=== PATIENT | female | born 1940 | race Caucasian/White ===

== ENCOUNTER → 2016-11-19 | Outpatient (CLI) | payer OTHER | LOC: BHLMT 13:15 | PROVIDERS: ATTEND Internal Medicine Cardiovascular Disease | DX: I20.1 Angina pectoris with documented spasm (principal); I10 Essential (primary) hypertension; E78.5 Hyperlipidemia, unspecified; R07.9 Chest pain, unspecified; Z78.9 Other specified health status | CPT/HCPCS: 93005-PO ==

== ENCOUNTER → 2016-12-04 | Outpatient (CLI) | payer OTHER | LOC: BHLMT 08:30 | PROVIDERS: ATTEND Internal Medicine Interventional Cardiology | DX: R07.9 Chest pain, unspecified (principal) | CPT/HCPCS: 78452; 93017; A9500; J2785 ==

== ENCOUNTER → 2018-04-21 | Outpatient (CLI) | payer OTHER | LOC: BHLMT 13:15 | PROVIDERS: ATTEND Internal Medicine Cardiovascular Disease | DX: I20.1 Angina pectoris with documented spasm (principal); I25.10 Atherosclerotic heart disease of native coronary artery without angina pectoris; I10 Essential (primary) hypertension; R42 Dizziness and giddiness; R00.2 Palpitations; E78.5 Hyperlipidemia, unspecified; G45.9 Transient cerebral ischemic attack, unspecified; H54.7 Unspecified visual loss | CPT/HCPCS: 93005-PO ==

== ENCOUNTER → 2018-05-02 | Outpatient (CLI) | payer OTHER | LOC: BHFA 11:00 | PROVIDERS: ATTEND Internal Medicine Cardiovascular Disease | DX: R00.2 Palpitations (principal); R42 Dizziness and giddiness ==

== ENCOUNTER → 2018-05-21 | Outpatient (CLI) | payer OTHER | LOC: BHLMT 14:00 | PROVIDERS: ATTEND Internal Medicine Interventional Cardiology | DX: R00.2 Palpitations (principal); I25.10 Atherosclerotic heart disease of native coronary artery without angina pectoris; I10 Essential (primary) hypertension | CPT/HCPCS: 93306-PO; 93880-PO ==

== ENCOUNTER 2018-06-02 15:10 | Inpatient (IN) | payer OTHER ==
--- NOTE | 2018-06-02 16:06 | CPEKG ---
Test Reason : OPEN Blood Pressure : / mmHG Vent. Rate : 074 BPM Atrial Rate : 074 BPM P-R Int : 163 ms QRS Dur : 103 ms QT Int : 423 ms P-R-T Axes : 046 016 166 degrees QTc Int : 470 ms Sinus rhythm Repol abnrm suggests ischemia, anterolateral Confirmed by Jah Niño ([id number]) on 06/02/2018 4:06:02 PM Referred By: PHYSICIAN ED Confirmed By:Jah Niño
[2018-06-02] MEDS ORDERED: ASPIRIN 81 MG CHEWABLE TAB PO ONE (16:09)
[2018-06-02] MEDS ORDERED: NS 500 ML IV ONE (16:09)
--- NOTE | 2018-06-02 16:11 | EDPHY ---
H & P Stated Complaint: cp sob abnl ekg Time Seen by Provider: 06/02/18 16:04 HPI/ROS: CHIEF COMPLAINT: Chest pain EKG changes HISTORY OF PRESENT ILLNESS: Patient is a 77-year-old female who had a TIA in January and was being worked up by Cardiology. She had negative carotid Dopplers and Holter monitor. She was following up today in the clinic when she told them she had had mild chest pain since April and EKG revealed anterior T- wave inversion which is new compared to her previous EKGs. Dr. Choi sent her to the emergency department for further workup. The patient states that her pain is a 1/10. She denies shortness of breath. She denies history of cardiac disease. No palpitations. No lightheadedness. No nausea. No radiation of her pain. It is mid chest. No weakness or numbness. No GI symptoms. Severity: Moderate Modifying factors: None REVIEW OF SYSTEMS: Constitutional: denies: chills, fever, recent illness, recent injury EENTM: denies: blurred vision, double vision, nose congestion Respiratory: denies: cough, shortness of breath Cardiac: denies: chest pain, irregular heart rate, lightheadedness, palpitations Gastrointestinal/Abdominal: denies: abdominal pain, diarrhea, nausea, vomiting, blood streaked stools Genitourinary: denies: dysuria, frequency, hematuria, pain Musculoskeletal: denies: joint pain, muscle pain Skin: denies: lesions, rash, jaundice, bruising Neurological: denies: headache, numbness, paresthesia, tingling, dizziness, weakness Hematologic/Lymphatic: denies: blood clots, easy bleeding, easy bruising Immunologic/allergic: denies: HIV/AIDS, transplant 10 systems reviewed and negative except as noted EXAM: GENERAL: Well-appearing, well-nourished and in no acute distress. HEAD: Atraumatic, normocephalic. EYES: Pupils equal round and reactive to light, extraocular movements intact, sclera anicteric, conjunctiva are normal. ENT: TMs normal, nares patent, oropharynx clear without exudates. Moist mucous membranes. NECK: Normal range of motion, supple without lymphadenopathy or JVD. LUNGS: Breath sounds clear to auscultation bilaterally and equal. No wheezes rales or rhonchi. HEART: Regular rate and rhythm without murmurs, rubs or gallops. ABDOMEN: Soft, nontender, normoactive bowel sounds. No guarding, no rebound. No masses appreciated. BACK: No CVA tenderness, no spinal tenderness, step-offs or deformities EXTREMITIES: Normal range of motion, no pitting or edema. No clubbing or cyanosis. NEUROLOGICAL: Cranial nerves II through XII grossly intact. Normal speech, normal gait. 5/5 strength, normal movement in all extremities, normal sensation , normal reflexes PSYCH: Normal mood, normal affect. SKIN: Warm, dry, normal turgor, no visible rashes or lesions. Source: Patient, RN/MD Exam Limitations: No limitations - Personal History Current Tetanus Diphtheria and Acellular Pertussis (TDAP): Yes - Medical/Surgical History Hx Asthma: No Hx Chronic Respiratory Disease: No Hx Diabetes: No Hx Cardiac Disease: Yes Hx Renal Disease: No Hx Cirrhosis: No Hx Alcoholism: No Hx HIV/AIDS: No Hx Splenectomy or Spleen Trauma: No Other PMH: cad angina glaucoma macular degeneration vestibular issues tia - Family History Significant Family History: No pertinent family hx - Social History Smoking Status: Never smoked Alcohol Use: None Constitutional: Initial Vital Signs Temperature (C) 36.7 C 06/02/18 15:32 Heart Rate 76 06/02/18 15:32 Respiratory Rate 18 06/02/18 15:32 Blood Pressure 161/91 H 06/02/18 15:32 O2 Sat (%) 93 06/02/18 15:32 O2 Delivery Mode Room Air Allergies/Adverse Reactions: brimonidine [From Combigan] Allergy (Verified 06/02/18 15:29) codeine Allergy (Verified 06/02/18 15:29) gemfibrozil Allergy (Verified 06/02/18 15:29) influenza virus vacc trivalent, split [From Fluzone] Allergy (Verified 06/02/18 15:29) levofloxacin Allergy (Verified 06/02/18 15:30) timolol [From Combigan] Allergy (Verified 06/02/18 15:29) Home Medications: Medication Instructions Recorded Acetaminophen [Tylenol 325mg (*)] 1,300 mg PO HS@21 06/02/18 Acetaminophen [Tylenol 325mg (*)] 650 mg PO DAILY@07 06/02/18 Cholecalciferol Vit D3 [Vitamin D3 2,000 units PO DAILY 06/02/18 (*)] Diltiazem Cd [Cardizem ER 120 MG 120 mg PO BID 06/02/18 (*)] Herbals/Supplements -Info Only 1 ea PO DAILY 06/02/18 Ibuprofen [Motrin (*)] 200 mg PO DAILY@07 06/02/18 Ibuprofen [Motrin (*)] 400 mg PO HS@21 06/02/18 Isosorbide Mononitrate Er (Imdur) 120 mg PO HS 06/02/18 Latanoprostene Bunod [Vyzulta] 1 drop EACHEYE HS 06/02/18 Losartan Potassium [Cozaar 50 mg 50 mg PO HS 06/02/18 (*)] Nitroglycerin [Nitrolingual] 3 spray SL DAILY PRN 06/02/18 Pantoprazole Sodium [Protonix 40mg 40 mg PO BID 06/02/18 (*)] Spironolactone [Aldactone 25 MG 25 mg PO DAILY 06/02/18 (*)] Medical Decision Making - Diagnostics EKG Interpretation: An EKG obtained and was read and documented in trace view. Please see trace view for full reading and report. Sinus rhythm, anterior T-wave inversions reportedly new compared to previous. Similar to EKG done 2 hr ago in the office. Imaging: Discussed imaging studies w/ it application architect Radiologist ED Course/Re-evaluation: Lab work and x-rays are unremarkable. Patient does reportedly have EKG changes per Cardiology. Will admit to the medical service. Patient and agree. 5:10 p.m. discussed the case with Dr. Raines who will admit. Differential Diagnosis: Partial list of the Differential diagnosis considered include but were not limited to; acute coronary disease, PE, arrhythmia and although unlikely based on the history and physical exam, I also considered infection,. I discussed these differential diagnoses and the plan with the [patient] as well as the usual and expected course. The [patient understands] that the diagnosis is provisional and that in medicine we are not always correct and that further workup is often warranted. Usual and customary warnings were given. All of the [patient's] questions were answered. The [patient was] instructed to return to the emergency department should the symptoms at all worsen or return, otherwise to followup with the physician as we discussed. - Data Points Laboratory Results: Laboratory Results 06/02/18 16:10 06/02/18 16:10 Medications Given: Acetaminophen (Tylenol) 650 mg PO Q6HRS PRN PRN Reason: Pain, Mild/Fever, Can Take PO Stop: 11/29/18 17:43 Last Admin: 06/03/18 09:21 Dose: 650 mg Benzonatate (Tessalon Pearles) 200 mg PO TID PRN PRN Reason: Cough, Mild Stop: 11/29/18 18:38 Last Admin: 06/03/18 14:30 Dose: 200 mg Cholecalciferol (Vitamin D) 2,000 units PO DAILY [facility] Stop: 11/30/18 08:59 Last Admin: 06/03/18 09:14 Dose: 2,000 units Diltiazem HCl (Cardizem Er Q24hr) 120 mg PO BID [facility] Stop: 11/29/18 20:59 Last Admin: 06/03/18 09:15 Dose: 120 mg Losartan Potassium (Cozaar) 50 mg PO HS [facility] Stop: 11/29/18 20:59 Last Admin: 06/02/18 22:19 Dose: 50 mg Miscellaneous Medication (Latanoprostene Bunod [Vyzulta]) 1 drop EACHEYE HS [facility] Stop: 11/29/18 20:59 Last Admin: 06/02/18 22:21 Dose: Not Given Miscellaneous Medication (Isosorbide Mononitrate Er (Imdur)) 120 mg PO HS [facility] Stop: 11/29/18 22:59 Last Admin: 06/02/18 23:03 Dose: 120 mg Pantoprazole Sodium (Protonix) 40 mg PO BID [facility] Stop: 11/29/18 20:59 Last Admin: 06/03/18 09:15 Dose: 40 mg Spironolactone (Aldactone) 25 mg PO DAILY [facility] Stop: 11/30/18 08:59 Last Admin: 06/03/18 09:14 Dose: 25 mg Discontinued Medications Aspirin (Aspirin) 324 mg PO EDNOW ONE Stop: 06/02/18 16:10 Last Admin: 06/02/18 16:24 Dose: 324 mg Sodium Chloride (Ns) 500 mls @ 0 mls/hr IV EDNOW ONE; Wide Open PRN Reason: Protocol Stop: 06/02/18 16:10 Last Admin: 06/02/18 16:23 Dose: 500 mls Metoprolol Tartrate (Lopressor) 50 mg PO ONCE ONE Stop: 06/03/18 10:54 Last Admin: 06/03/18 11:05 Dose: 50 mg Metoprolol Tartrate (Lopressor) 50 mg PO ONCE ONE Stop: 06/03/18 13:01 Last Admin: 06/03/18 14:41 Dose: Not Given Point of Care Test Results: Chemistry 06/02/18 16:15 POC Troponin I 0.00 ng/mL ng/mL (0.00-0.08) Departure - Departure Disposition: [facility] Inpatient Acute Clinical Impression: Chest pain Qualifiers: Chest pain type: unspecified Qualified Code(s): R07.9 - Chest pain, unspecified Condition: Fair
[2018-06-02 16:24] LABS: PLATELET COUNT 290 10^3/uL (150-400)
[2018-06-02 16:37] LABS: INR 0.94 (0.83-1.16); PROTIME(PATIENT) 12.8 SEC (12.0-15.0)
[2018-06-02] MEDS ORDERED: ONDANSETRON 4 MG/2 ML VIAL IVP PRN (17:44)
[2018-06-02] MEDS ORDERED: NITROGLYCERIN 0.4 MG BTL SL PRN (17:46)
[2018-06-02] MEDS ORDERED: IPRATROPIUM/ALBUTEROL 3 ML DEYVIAL IH PRN (18:39)
[2018-06-02] MEDS ORDERED: GUAIFENESIN/DM 10 ML UDCUP PO PRN (18:39)
--- NOTE | 2018-06-02 19:18 | GHP ---
[f rep st] HISTORY AND PHYSICAL DATE OF ADMISSION: 06/02/2018 CHIEF COMPLAINT: Chest pain. HISTORY OF PRESENT ILLNESS: A 77-year-old female with nonobstructive CAD, Prinzmetal angina, hypertension, hyperlipidemia, TIA, sent over from Dr. Choi' s clinic with chest pain and new T-wave inversions on EKG. She was last seen in Cardiology on April 21. At that time, she endorsed having a transient episode of left eye blindness. After being seen by her clinical education specialist, she was referred to Cardiology. Her was hospitalized May 02 and she developed chest pain at that time, but declined admission to the hospital. Since then, has CP intermittently daily. Describes it as burning with radiation to her left shoulder, accompanied with nausea and shortness of breath. Lasts 5-30 minutes. Not improved with SL nitro. Endorses PND. No leg swelling.Progressive dyspnea since April; cannot walk across the room without having to stop to catch her breath. For the past 2 weeks, c/o URI symptoms including nasal congestion, productive cough. No fevers, chills, or sweats. Also complained of dyspnea that has progressed since April with minimal exertion. REVIEW OF SYSTEMS: I completed a 10-point review of systems, negative except as noted in HPI. PAST MEDICAL HISTORY: Acid reflux, arthritis, back pain, bilateral cataracts, nonobstructive CAD, catheterization September 2015, cellulitis, chronic pain, degenerative disk disease, diverticula, fibromyalgia, glaucoma, hearing loss, hyperlipidemia, hypertension, macular degeneration, osteopenia, peptic ulcer disease, Prinzmetal angina. ALLERGIES: Statin. PAST SURGICAL HISTORY: Bladder repair, blepharoplasty, cataract surgery, laser surgery glaucoma 3 weeks ago, foot surgery, left hip replacement, right hip replacement, hysterectomy, oophorectomy, tonsil and adenoidectomy, tubal ligation. SOCIAL HISTORY: Lives in [place] with her . No tobacco, alcohol, or illicit's. One child from brain cancer, one from ovarian cancer. Father had angina and lung cancer. Mother with type 2 diabetes. HOME MEDICATIONS: Aldactone 25 mg daily, B complex, Cozaar 50 mg daily, diltiazem 120 mg twice a day, fish oil, ibuprofen as needed, isosorbide mononitrate 120 mg daily, nitroglycerin as needed, , Premarin, Tylenol. ALLERGIES: Codeine, , Fluzone, gemfibrozil, levofloxacin. PHYSICAL EXAMINATION: VITAL SIGNS: Temperature 36.7, blood pressure 161/91, heart rate in the 70s, respirations 18, 93% on room air. GENERAL: Elderly female sitting in bed in no acute distress. HEENT: PERRLA, coughing. CV: Regular rate, rhythm. No murmurs, gallops, or rubs. No lower extremity edema. LUNGS: With wheezes. No crackles. ABDOMEN: Soft, nontender, nondistended. Positive bowel sounds. : No Barnhart. MUSCULOSKELETAL: 5/5 upper and lower extremities. NEURO: 2 through 12 intact. PSYCH: Alert and oriented x3. EKG new T-wave inversions in leads V3 through V4. Personally reviewed. Mild cardiomegaly. Chest x-ray personally reviewed by me. LABS: Sodium 138, potassium 3.6, chloride 107, anion gap 10, creatinine 0.6, glucose 90. Troponin 0.00. D-dimer 0.29. Coags within normal. WBC 7.3, hemoglobin 11, hematocrit 36, platelets 290. Influenza negative. Positive for RSV. ASSESSMENT AND PLAN: 1. Angina: new T-wave inversions anterior leads. Initial troponin negative, will repeat x2. Monitor on telemetry. Echo pending. Cardiology will decide in the morning whether to pursue a stress test versus cardiac catheterization. 2. Transient left eye blindness: per Dr. Choi's note had an abnormal carotid ultrasound. Check CTA head and neck. 3. Hypertension: Resume home medications. 4. Hyperlipidemia: Statin intolerance. 5. Macular degeneration: Legally blind. 6. Glaucoma: Laser surgery 3 weeks ago. 7. RSV infection: Supportive care with antitussives. Mucinex 8. Nonobstructive CAD: Again, plan as stated above. Start with an echocardiogram and Cardiology to determine subsequent ischemic evaluation. 9. Diet: Cardiac n.p.o. after midnight. 10. Deep venous thrombosis prophylaxis: Lovenox. DISPOSITION: Patient warrants inpatient admission given concern for angina requiring further cardiac evaluation. /[id number]/MODL MTDD
[2018-06-02] MEDS ORDERED: IOPAMIDOL (ISOVUE 370) 100 ML BTL IV ONE (19:33)
[2018-06-02] MEDS ORDERED: Latanoprostene Bunod [Vyzulta] 1 DROP EACHEYE SCH (21:00)
--- NOTE | 2018-06-02 22:16 | PDMN ---
Medical Necessity Medical necessity: MCG M89 CP, A-1 day: 77 yo w/ CP/angina and new T wave inversions w/ transient L eye blindness w/ known abn carotid U/S. Cardiology consulted. Stress test vs. cath per cardiology. Serial troponins, CTA head/neck ordered. Pt is hypertensive. Anticipate>2Mn for ongoing monitoring, dx testing and tx of above. Hx nonosbstructive CAD, cath 2016, cellulitis, chronic pain, fibromyalgia, diverticula, glaucoma, HLD, prinzmetal angina, HTN, TIA
[2018-06-02] MEDS: PANTOPRAZOLE SODIUM 40 MG TAB PO SCH (22:19)
[2018-06-02] MEDS: DILTIAZEM CD 120 MG CAP PO SCH (22:19)
[2018-06-02] MEDS: LOSARTAN POTASSIUM 50 MG TAB PO SCH (22:19)
[2018-06-02] MEDS: ACETAMINOPHEN 325 MG TAB PO PRN (22:19)
[2018-06-02] MEDS: ISOSORBIDE MONONITRATE 120 MG PO SCH (23:03)
[2018-06-03] MEDS: BENZONATATE 100 MG CAP PO PRN ×3 (03:32→21:55)
[2018-06-03] MEDS ORDERED: Herbals/Supplements -Info Only PO SCH (09:00)
[2018-06-03] MEDS: CHOLECALCIFEROL VIT D3 1,000 UNITS TAB PO SCH (09:14)
[2018-06-03] MEDS: SPIRONOLACTONE 25 MG TAB PO SCH (09:14)
[2018-06-03] MEDS: DILTIAZEM CD 120 MG CAP PO SCH ×2 (09:15→20:23)
[2018-06-03] MEDS: PANTOPRAZOLE SODIUM 40 MG TAB PO SCH ×2 (09:15→20:23)
[2018-06-03] MEDS: ACETAMINOPHEN 325 MG TAB PO PRN ×2 (09:21→21:55)
[2018-06-03] MEDS ORDERED: METOPROLOL TARTRATE 50 MG TAB PO ONE ×2 (10:53→13:00)
[2018-06-03] MEDS ORDERED: IOPAMIDOL (ISOVUE 370) 100 ML BTL IV ONE (12:47)
--- NOTE | 2018-06-03 13:19 | PDCARPN ---
Cardiology Progress Note Chief Complaint: chest pain, dyspnea, palps Assessment/Plan: Assessment: 77F PMH glaucoma, L eye blindness, htn, OA, fibromyalgia, previous dx Prinzmetal angina, dyslipidemia, seen yesterday in clinic for chest pains. Since February, she has been experiencing rapid heart rates and dyspnea on minimal exertion. Since April, she has been having more cp. Seen by Dr. Choi yesterday in clinic and sent over for hospitalization due to new ECG changes in setting of cp. First encounter. and [facility] notes, studies, labs reviewed. ECG personally interpreted. #. cp: she reports a L sided retrosternal cp since April not relieved with NTG reportedly different than her previous Prinzmetal under quite a bit of stress due to 's health and also the loss of her independence due to vision/hearing loss ECG has now changed with new Twi across precordium has ruled out via enzymes we reviewed options and patient is agreeable to coronary CTA BB to decrease HR will be dosed #. dyspnea: new diagnosis worrisome for possible pulmonary process given acute onset CTA of chest today echo shows mild MR, mild-mod TR, top normal RVSP 39, TAA 4.1 cm (05/21/18) #. palpitations: telemetry unrevealing holter from this month shows brief PSVT will consider longer monitoring #. vision loss: new L eye blindness CTA of head and neck is wnl #. TAA: will obtain CTA to evaluate aortic arch Plan: - coronary and chest CTA 06/03/18 13:06 06/03/18 13:24 Subjective: 77-y/o F PMH htn, nonobstructive CAD based on remote [facility] 2003, L eye blindness, Prinzmetal angina, untreated dyslipidemia, with retrosternal burning. Most prominent episode occurred in April while her was hospitalized in [place]. She refused ED visit at that time. She describes symptoms would be off and on without radiation or associated nausea, diaphoresis, dyspnea. No positional association and no correlation to meals. Moderate in intensity. Since February, had sudden decrease in exercise tolerance due to dyspnea and palpitations. Minimal activity would bring this on. Does have h/o STEVE for which she has been on Spironolactone. No recent travel. New L eye blindness raised concern for TIA. Reviewed/Discussed With: hospitalist (Dr. Maloney) Objective: Vital Signs (8 Hrs) Temp Pulse Resp BP Pulse Ox 06/03/18 12:00 98.1 F 66 19 138/85 H 90 L 06/03/18 11:05 79 130/80 H 06/03/18 09:15 75 130/80 H 06/03/18 08:00 59 L 06/03/18 07:51 98.0 F 75 14 130/80 H 92 Intake/Output (24 Hrs) 06/02/18 06/03/18 06/04/18 05:59 05:59 05:59 Output Total 1300 Balance -1300 Output: Urine (ml) 1300 Toilet 1300 Other: Weight 49.89 kg Number of Voids Toilet 1 Number of Stools Toilet 3 Result Diagrams: 06/02/18 16:10 06/02/18 16:10 EKG: SR with diffuse Twi Telemetry: SR - Physical Exam Constitutional: healthy appearing, no apparent distress Eyes: PERRL, anicteric sclera Ears, Nose, Mouth, Throat: moist mucous membranes Cardiovascular: regular rate and rhythm, systolic murmur Respiratory: reduced air movement (rhonchi), other Gastrointestinal: normoactive bowel sounds, no tenderness Genitourinary: no suprapubic tenderness Skin: no rashes, no abrasions Neurologic: AAOx3 Psychiatric: cooperative, interactive ICD10 Worksheet Patient Problems: Problems Problem Status Onset Chest pain Acute
--- NOTE | 2018-06-03 14:09 | ECHO ---
[email or web address] [address] Main: [phone] Fax: Transthoracic Echocardiogram Name: YASMIN IVEY MR#: [id number] Study Date: 06/03/2018 Study Time: 08:01 AM Date of : 1940 Age: 77 year(s) Height: 152.4 cm (60 in.) Weight: 49.9 kg (110 lb.) BSA: 1.45 m2 Gender: Female Examination: Echo Indication: Chest Pain, Cardiac: dyspnea, new TWI, previous echo 05/21/18 Image Quality: Good Contrast: Requested by: Negin Raines BP: 130 mmHg/80 mmHg Heart Rate: Rhythm: Indication: Chest Pain, Cardiac: dyspnea, new TWI, previous echo 05/21/18 Procedure Staff Laboratory Equipment Cleaner: Deanna Cuellar [facility] Reading Physician: Analisa Cordova MD Requesting Provider: Conclusions: Normal size left ventricle. No LV hypertrophy. Normal global systolic LV function. The ejection fraction is estimated to be 65-70 %. No regional wall motion abnormality. Mildly dilated right ventricle. Normal RV function. Mild tricuspid regurgitation is present. The pulmonary artery pressure is normal. Mildly dilated ascending aorta measuring 3.8 cm. compared with 05/21/2018 estimated PA pressure is lower. RV is now mildly dilated. Measurements: Chambers Valvular Assessment AV/MV Valvular Assessment TV/PV Normal Normal Normal Name Value Range Name Value Range Name Value Range Ao Jasmin (MM): 3.1 cm (2.2 cm-3.7 AV Vmax: 1.28 m/s (1 m/s-1.7 TR Vmax: 2.10 mm/s ( - ) cm) m/s) TR PGmax: 18 mmHg ( - ) IVSd (2D): 0.9 cm (0.6 cm-1.1 AV maxP mmHg ( - ) syst. PAP: 23 mmHg ( - ) cm) AV meanP mmHg ( - ) LVDd (2D): 4.5 cm (3.9 cm-5.3 MV E Vmax: 0.50 m/s ( - ) cm) MV A Vmax: 0.96 m/s ( - ) LVDs (2D): 3.1 cm (2.1 cm-4 MV E/A: 0.52 ( - ) cm) LVPWd (2D): 0.9 cm ( - ) LVEF (BP): 67 % (>=55 %) EF Range: 65-70 % Patient: YASMIN IVEY Study Date: 06/03/2018 Page 1 of 2 08:01 AM Continued Measurements: Chambers Valvular Assessment AV/MV Valvular Assessment TV/PV Name Value Name Value Name Value LADs: 3.4 cm MV E/E' Septal: 12.00 CVP (est.): 5 mmHg LADs Lon.9 cm MV E/E' Lateral: 9.40 LA Area: 12.7 cm2 LA Volume: 35 ml LA Volume Index: 24.1 ml/m2 Additional Vessels Name Value Ao Ascendin.8 cm Findings: Left Ventricle: Normal size left ventricle. No LV hypertrophy. Normal global systolic LV function. The ejection fraction is estimated to be 65-70 %. No regional wall motion abnormality. Normal diastolic LV function. E/a wave reversal.. Right Ventricle: Mildly dilated right ventricle. Normal RV function. Left Atrium: The left atrium is normal in size. Right Atrium: The right atrium is normal in size. Mitral Valve: The mitral valve is normal in appearance and function. Trivial mitral valve regurgitation. Aortic Valve: Minimal aortic cusp calcification is noted. The aortic valve is tri-leaflet. There is no aortic valve regurgitation. Tricuspid Valve: The tricuspid valve is normal in appearance and function. Mild tricuspid regurgitation is present. The pulmonary artery pressure is normal. Pulmonic Valve: Pulmonary valve not well visualized. Aorta: The aorta is normal. Mildly dilated ascending aorta measuring 3.8 cm. Pericardium: Fat pad vs. trace anterior pericardial effusion with echogenicity within.. (No Signature Object) Patient: YASMIN IVEY Study Date: 06/03/2018 Page 2 of 2 08:01 AM [id number]
--- NOTE | 2018-06-03 16:11 | ASMTCMCOM ---
CM Note CM Note Notes: Discussed pt in rounds. Pt admitted for chest pain, abnormal EKG and dyspnea with relatively new left eye blindness. Pt endorses increased stress due to 's health and her own new blindness/hearing loss. Per RN, pt lives in [place] with and is retired. Pt to undergo coronary and chest CTA today. No therapies ordered. Anticipate discharge independently. CM to follow. D/C Plan: independent Date Signed: 06/03/2018 04:10 PM Electronically Signed By:Nicci Ashraf
--- NOTE | 2018-06-03 16:34 | HOSPPROG ---
Hospitalist Progress Note Assessment/Plan: 77 yo F w prinzmetal angina here w abnormal ekg, ongoing CP ekg changes: twi acorss precordium neg trop neg d dimer w no tachycardia or hypoxia await cardiac CT CT: ?RSV vs musculoskeletal as above RsV; not hypoxic no wheeze supportive care L eye blindness: head and neck CTA unremarkable transient in setting of sig eye disease dispo: pending Subjective: case d/w maciej puente of cardiology. rsv noted Objective: Vital Signs Temp Pulse Resp BP Pulse Ox 36.7 C 67 17 126/74 H 93 06/03/18 15:42 06/03/18 15:42 06/03/18 15:42 06/03/18 15:42 06/03/18 15:42 06/02/18 06/03/18 06/04/18 05:59 05:59 05:59 Intake Total 200 Output Total 1300 200 Balance -1300 0 PT 12.8 SEC (12.0-15.0) 06/02/18 16:10 INR 0.94 (0.83-1.16) 06/02/18 16:10 - Physical Exam Constitutional: no apparent distress, appears nourished Eyes: PERRL, anicteric sclera Ears, Nose, Mouth, Throat: moist mucous membranes, hearing normal Cardiovascular: regular rate and rhythym, no murmur, rub, or gallop Respiratory: no respiratory distress, no rales or rhonchi Gastrointestinal: normoactive bowel sounds, soft, non-tender abdomen Genitourinary: no bladder fullness, No sewell in urethra Skin: warm Musculoskeletal: full muscle strength ICD10 Worksheet Patient Problems: Problems Problem Status Onset Chest pain Acute
[2018-06-03] MEDS: 1/2 NS 1,000 ML IV SCH (17:33)
[2018-06-03] MEDS: ISOSORBIDE MONONITRATE 120 MG PO SCH (20:23)
[2018-06-03] MEDS: LOSARTAN POTASSIUM 50 MG TAB PO SCH (20:23)
[2018-06-04] MEDS: 1/2 NS 1,000 ML IV SCH (04:17)
[2018-06-04 08:04] VITALS: BP 142/86
[2018-06-04] MEDS: ACETAMINOPHEN 325 MG TAB PO PRN (08:06)
[2018-06-04] MEDS: CHOLECALCIFEROL VIT D3 1,000 UNITS TAB PO SCH (08:07)
[2018-06-04] MEDS: BENZONATATE 100 MG CAP PO PRN (08:07)
[2018-06-04] MEDS: DILTIAZEM CD 120 MG CAP PO SCH (08:08)
[2018-06-04] MEDS: SPIRONOLACTONE 25 MG TAB PO SCH (08:08)
[2018-06-04] MEDS: PANTOPRAZOLE SODIUM 40 MG TAB PO SCH (08:08)
[2018-06-04] MEDS ORDERED: ASPIRIN EC 81 MG TAB PO SCH (09:00)
--- NOTE | 2018-06-04 11:12 | PDCARPN ---
Cardiology Progress Note Chief Complaint: possible TIA/cp/dyspnea/palps Assessment/Plan: Assessment: 77F PMH glaucoma, L eye blindness, htn, OA, fibromyalgia, previous dx Prinzmetal angina, dyslipidemia, seen yesterday in clinic for chest pains. Since February, she has been experiencing rapid heart rates and dyspnea on minimal exertion. Since April, she has been having more cp. Seen by Dr. Choi yesterday in clinic and sent over for hospitalization due to new ECG changes in setting of cp. First encounter. and [facility] notes, studies, labs reviewed. ECG personally interpreted. #. cp: she reports a L sided retrosternal cp since April not relieved with NTG reportedly different than her previous Prinzmetal under quite a bit of stress due to 's health and also the loss of her independence due to vision/hearing loss ECG has now changed with new Twi across precordium has ruled out via enzymes coronary CT with mild nonobstructive disease #. dyspnea: new diagnosis worrisome for possible pulmonary process given acute onset CTA of chest yesterday without PE but some atelectasis echo shows mild MR, mild-mod TR, top normal RVSP 39, TAA 4.1 cm (05/21/18) #. palpitations: telemetry unrevealing holter from this month shows brief PSVT will add low dose BB as that diminished her palps #. vision loss: new L eye blindness CTA of head and neck is wnl d/w Dr. Choi/ unclear etiology and therefore will be switched to Plavix #. TAA: CTA shows normal caliber aortic arch Plan: OK to discharge from cardiology Start Plavix Metoprolol 12.5 BID Follow up with Dr. Choi in 2 weeks 06/04/18 11:03 Subjective: Cough improving. Heart rate has slowed down after BB dosing yesterday. Reviewed/Discussed With: hospitalist (Dr. Maloney) Objective: Vital Signs (8 Hrs) Temp Pulse Resp BP Pulse Ox 06/04/18 08:08 69 142/86 H 06/04/18 08:02 97.6 F 69 13 142/86 H 92 06/04/18 04:00 97.9 F 74 20 133/85 H 92 Intake/Output (24 Hrs) 06/03/18 06/04/18 06/05/18 05:59 05:59 05:59 Intake Total 1870 Output Total 1300 700 Balance -1300 1170 Intake: Oral (ml) 500 IV Infused (ml) 1370 1/2 Ns 1,000 ml @ 125 mls 1370 /hr IV CONT ALIA Rx#: [id number] Output: Urine (ml) 1300 700 Toilet 1300 700 Other: Weight 49.89 kg Number of Voids Toilet 1 1 Number of Stools Toilet 3 Result Diagrams: 06/02/18 16:10 06/02/18 16:10 EKG: SR - Physical Exam Constitutional: no apparent distress Eyes: anicteric sclera Ears, Nose, Mouth, Throat: moist mucous membranes Skin: no rashes, no abrasions, no edema Neurologic: AAOx3 ICD10 Worksheet Patient Problems: Problems Problem Status Onset Chest pain Acute
--- NOTE | 2018-06-04 13:03 | HOSPPROG ---
Hospitalist Progress Note Assessment/Plan: 77 yo F w prinzmetal angina here w abnormal ekg, ongoing CP ekg changes: twi across precordium neg trop neg d dimer w no tachycardia or hypoxia CT w no pe await cardiac CT CT: ?RSV vs musculoskeletal as above RsV; not hypoxic no wheeze supportive care L eye blindness: head and neck CTA unremarkable transient in setting of sig eye disease change to plavix dispo: home today > 30 minutes see dc summary Subjective: cardiac CT OK. anxious for dc Objective: Vital Signs Temp Pulse Resp BP Pulse Ox 36.4 C 69 13 142/86 H 92 06/04/18 08:02 06/04/18 08:08 06/04/18 08:02 06/04/18 08:08 06/04/18 08:02 06/03/18 06/04/18 06/05/18 05:59 05:59 05:59 Intake Total 1870 Output Total 1300 700 Balance -1300 1170 PT 12.8 SEC (12.0-15.0) 06/02/18 16:10 INR 0.94 (0.83-1.16) 06/02/18 16:10 - Physical Exam Constitutional: no apparent distress, appears nourished Eyes: PERRL, anicteric sclera Ears, Nose, Mouth, Throat: moist mucous membranes, hearing normal Cardiovascular: regular rate and rhythym, no murmur, rub, or gallop Respiratory: no respiratory distress, no rales or rhonchi Gastrointestinal: normoactive bowel sounds, soft, non-tender abdomen Genitourinary: no bladder fullness, No sewell in urethra Skin: warm, normal color Musculoskeletal: full muscle strength Neurologic: AAOx3 Psychiatric: interacting appropriately Lymph, Heme, Immunologic: no cervical LAD ICD10 Worksheet Patient Problems: Problems Problem Status Onset Chest pain Acute
--- NOTE | 2018-06-04 13:52 | ASMTLACE ---
LACE Length of stay for Answers: 1 day current admission Acuity / Level of Answers: Yes Care: Did the patient have an inpatient admission? Comorbidities - select Answers: Cerebrovascular disease all that apply (CVA, TIA, aneurysms, vasc ular dementia) Coronary Artery Disease Opioid dependence / Chronic pain Other Notes: HTN; HLD # of Emergency department Answers: 1-2 visits in the last 6 months Score: 13 Date Signed: 06/04/2018 01:52 PM Electronically Signed By:ELLIS Walsh
--- NOTE | 2018-06-04 13:52 | ASDISCHSUM ---
Discharge Information Plan Status:Home with No Needs Medically Cleared to Leave: Discharge Date: D/C Disposition:Home, Routine, Self-Care ADT D/C Disposition: Projected Discharge Date:06/04/2018 12:00 AM Transportation at D/C:Family Discharge Delay Reason: Follow-Up Date:06/04/2018 12:00 AM Discharge Slot: Final Diagnosis: Placement Information Patient Contact Information Contact Name:LULU Relationship:Natalia Address:[address] [place] [address] City:[place] Alternate Phone: State/Zip Code:[place] [address] Email: Financial Information Financial Class:Medicare Primary Plan Desc:MEDICARE INPATIENT Primary Plan Number:[id number] Secondary Plan Desc:JAZZMINE Secondary Plan Number:[id number] Assessment Information [facility] CM Progress Note CM Note CM Note Notes: Discussed pt in rounds. Pt admitted for chest pain, abnormal EKG and dyspnea with relatively new left eye blindness. Pt endorses increased stress due to 's health and her own new blindness/hearing loss. Per RN, pt lives in [place] with and is retired. Pt to undergo coronary and chest CTA today. No therapies ordered. Anticipate discharge independently. CM to follow. D/C Plan: independent Date Signed: 06/03/2018 04:10 PM Electronically Signed By:Nicci Ashraf Case Management Discharge Plan Note Case Management Discharge Discharge Order Complete? Answers: Yes Patient to Obtain Answers: via Family Medications Transportation Arranged Answers: Family/Friends Family Notified Answers: Yes Discharge Comments Notes: Pt is being discharged today independently. Family to transport. Pt is able to obtain medications and has follow-up care information. No other CM needs identified. Intervention Information Intervention Type:*Incorrect Registration Date of Service:06/02/2018 09:21 PM Patient Type:Observation Staff Member:Frances Treadwell Hours: Discipline: Severity: Comment: Intervention Type:*IM-Signed Date of Service:06/04/2018 01:21 PM Patient Type:Inpatient Staff Member:ELLIS Carrillo Ema Hours: Discipline: Severity: Comment:
--- NOTE | 2018-06-04 15:22 | GDS ---
[f rep st] DISCHARGE SUMMARY DISCHARGE DIAGNOSES: 1. Anterior T-wave inversions on the EKG without explanation. 2. Recent transient left eye blindness. 3. Nonobstructive coronary disease. 4. Prinzmetal angina. 5. Hyperlipidemia. 6. Transient ischemic attack. 7. Macular degeneration with reduced vision. 8. Respiratory syncytial virus. This is likely responsible for her chest pain. Please see admission history and physical by Dr. Negin Raines. The patient presented with chest pa in and EKG changes. She had serial negative troponin. She had a CT coronary angiogram showing no pu lmonary embolism, no obstructive coronary disease. Her head and neck CTA were unremarkable. She had an echocardiogram showing a mildly dilated ascending aorta 3.8 cm, but no focal motion abnormalities . Her left eye blindness did improve while here. This was treated as a neurovascular event, although there was no objective evidence of neurovascular obstruction. Her aspirin was changed to Plavix and initiated on a beta kayleigh. She was also given Tessalon Emilie. /[id number]/MODL
== END 2018-06-04 14:36 | disposition home or self-care (01) | DRG 153 ==
LOC: OBSVTOIN 18:28 → F2W 18:38
PROVIDERS: ADMIT Internal Medicine; ATTEND Internal Medicine
DX: J06.9 Acute upper respiratory infection, unspecified (principal); B97.4 Respiratory syncytial virus as the cause of diseases classified elsewhere; R94.31 Abnormal electrocardiogram [ECG] [EKG]; H53.122 Transient visual loss, left eye; I25.10 Atherosclerotic heart disease of native coronary artery without angina pectoris; I20.1 Angina pectoris with documented spasm; E78.5 Hyperlipidemia, unspecified; H35.30 Unspecified macular degeneration; Z86.73 Personal history of transient ischemic attack (TIA), and cerebral infarction without residual deficits
CPT/HCPCS: 84484-ER; Q9967

== ENCOUNTER → 2018-09-02 | Day surgery (SDC) | payer OTHER ==
[~2018-09-02] MED LIST: LIDOCAINE 1% 5 ML SDV SC ONE
--- NOTE | 2018-09-02 14:28 | PDHPUP ---
History & Physical Update H&P update statement: This history and physical update is based on an assessment of the patient which was completed after admission or registration (within 24 hours), but prior to the surgery/procedure. H&P update: H&P reviewed & patient examined, no change in patient's condition since H&P completed
--- NOTE | 2018-09-02 15:56 | CPIP ---
[f rep st] INVASIVE CARDIAC PROCEDURE DATE OF PROCEDURE: 09/02/2018 INDICATIONS: TIA. PROCEDURE: Implantation of a [place] Confirm. TECHNIQUE: Following informed consent and in the fasting state, the patient was brought to the CVC. The 4th intercostal space was identified by landmarks. This space was then marked. The left chest was prepped and draped in the usual sterile fashion. 2% lidocaine was infiltrated into the skin over lying the 4th intercostal space. Using the 15 blade and the [place] scalpel, a 1 cm incision was made. The [place] Confirm was then injected beneath the skin, and the wound closed with 2 radha . A dry dressing was applied. DEVICE INFORMATION: This is a [place] Confirm. Reference number [id number], serial number [id number]. /[id number]/MODL
== END | disposition home or self-care (01) ==
LOC: FCATH 14:00
PROVIDERS: ATTEND Internal Medicine Cardiovascular Disease
PROC: 0JH632Z Insertion of Monitoring Device into Chest Subcutaneous Tissue and Fascia, Percutaneous Approach (ICD-10-PCS; principal; 2018-09-02)
DX: G45.9 Transient cerebral ischemic attack, unspecified (principal); I20.1 Angina pectoris with documented spasm; I10 Essential (primary) hypertension; E78.5 Hyperlipidemia, unspecified
CPT/HCPCS: C1764